=== PATIENT | female | born 1975 | race Caucasian/White ===

== ENCOUNTER 2017-09-21 09:39 | Outpatient (CLI) | payer BC ==
[2017-09-21 19:46] LABS: BASOPHILS % (AUTO) 0.8 %; EOSINOPHILS # (AUTO) 0.2 10^3/uL (0.0-0.7); EOSINOPHILS % (AUTO) 3.9 %; LYMPHOCYTES # (AUTO) 2.5 10^3/uL (1.5-3.5); LYMPHOCYTES % (AUTO) 40.6 %; MEAN CORPUSCULAR HGB CONC 33.4 g/dL (32.0-36.0); MEAN CORPUSCULAR VOLUME 86.8 fL (81.0-99.0); MONOCYTES # (AUTO) 0.4 10^3/uL (0.0-1.0); MONOCYTES % (AUTO) 6.6 %; NEUTROPHILS % (AUTO) 48.1 %; PLT - PLATELET COUNT 253 10^3/uL (130-450); RED BLOOD COUNT 4.83 10^6/uL (4.20-5.40); RED CELL DISTRIBUTION WIDTH 13.5 % (12.0-15.0); WHITE BLOOD COUNT 6.2 x10^3/uL (4.8-10.8)
[2017-09-21 20:08] LABS: ALBUMIN 4.8 g/dL (3.2-5.5); ALBUMIN/GLOBULIN RATIO 1.7 (1.0-2.2); ALKALINE PHOSPHATASE 28 IU/L (42-121); ALT ALANINE AMINOTRANSFERASE 11 IU/L (10-60); AST ASPARTATE AMINOTRANSFERASE 15 IU/L (10-42); BILIRUBIN,TOTAL 0.3 mg/dL (0.2-1.0); BUN - BLOOD UREA NITROGEN 11 mg/dL (6-20); CARBON DIOXIDE - CO2 22 mmol/L (21-32); CHLORIDE 106 mmol/L (101-111); CHOL/HDL RATIO 3.7 (<4.4); CHOLESTEROL 236 mg/dL; CREATININE 0.9 mg/dL (0.4-1.0); GFR - MDRD 69 (>89); GLUCOSE 91 mg/dL (70-100); HDL CHOLESTEROL 63 mg/dL; LDL CHOLESTEROL,CALCULATED 153 mg/dL; LDL/HDL RATIO 2.4 (<4.4); SODIUM 137 mmol/L (135-145); TOTAL PROTEIN 7.6 g/dL (6.7-8.2); VLDL CHOLESTEROL 20 mg/dL
== END 2017-09-21 09:40 | disposition home or self-care (01) ==
LOC: LAB.F 09:39
PROVIDERS: ATTEND Family Medicine
DX: Z00.00 Encounter for general adult medical examination without abnormal findings (principal); F31.9 Bipolar disorder, unspecified; F41.8 Other specified anxiety disorders
CPT/HCPCS: 36415; 80053; 80061; 80175; 84443; 85025

== ENCOUNTER 2019-03-20 09:24 | Outpatient (CLI) | payer BC, OTHER ==
--- NOTE | 2019-03-21 09:43 | Mammography Report ---
Reason: SCREENING Procedure Date: 03/20/2019 Accession Number: [id number] / [id number] Procedure: MGS - Screening Mammo Dig Bilat CPT Code: FULL RESULT: EXAM: Screening Mammo Dig Bilat DATE: 03/20/2019 9:45 AM CLINICAL HISTORY: Screening encounter. History of late childbearing. TECHNIQUE: (B) - Bilateral CC, laterally exaggerated CC, MLO views were obtained. COMPARISON: Baseline mammogram. PARENCHYMAL PATTERN: (D) - The breast(s) demonstrate(s) heterogeneously dense fibroglandular parenchyma. FINDINGS: There are coarse typically benign calcifications. There are no suspicious masses, calcifications, or areas of distortion. IMPRESSION: Benign findings. BI-RADS category 2. RECOMMENDATION: (ANNUAL) - Recommend routine annual screening mammography. BI-RADS CATEGORY: (2) - Benign Findings. STANDARD QUALIFYING STATEMENTS: 1. This examination was reviewed with the aid of Computer-Aided Detection (CAD). 2. A negative or benign imaging report should not preclude biopsy if clinically suspicious findings are present. 3. Dense breasts may obscure an underlying neoplasm. 4. This examination was reviewed without the aid of 3D breast imaging (tomosynthesis).
== END 2019-03-20 09:25 | disposition home or self-care (01) ==
LOC: DI.S 09:24
DX: Z12.31 Encounter for screening mammogram for malignant neoplasm of breast (principal)
CPT/HCPCS: 77067

== ENCOUNTER 2020-08-23 13:51 | Outpatient (CLI) | payer OTHER ==
[2020-08-23 20:18] LABS: ALBUMIN 4.3 g/dL (3.2-5.5); ALBUMIN/GLOBULIN RATIO 1.4 (1.0-2.2); ALKALINE PHOSPHATASE 26 IU/L (42-121); ALT ALANINE AMINOTRANSFERASE 19 IU/L (10-60); AST ASPARTATE AMINOTRANSFERASE 20 IU/L (10-42); BILIRUBIN,TOTAL 0.8 mg/dL (0.2-1.0); BUN - BLOOD UREA NITROGEN 12 mg/dL (6-20); CALCIUM 9.4 mg/dL (8.5-10.3); CARBON DIOXIDE - CO2 24 mmol/L (21-32); CHLORIDE 106 mmol/L (101-111); CHOL/HDL RATIO 3.5 (<4.4); CHOLESTEROL 240 mg/dL; CREATININE 0.9 mg/dL (0.4-1.0); GLUCOSE 96 mg/dL (70-100); HDL CHOLESTEROL 69 mg/dL; LDL CHOLESTEROL,CALCULATED 156 mg/dL; LDL/HDL RATIO 2.3 (<4.4); SODIUM 139 mmol/L (135-145); TOTAL PROTEIN 7.4 g/dL (6.7-8.2); VLDL CHOLESTEROL 15 mg/dL
[2020-08-23 20:24] LABS: THYROID STIMULATING HORMONE 1.38 uIU/mL (0.34-5.60)
[2020-08-23 20:26] LABS: FREE T3 4.3 pg/mL (2.5-3.9); FREE T4 (FREE THYROXINE) 0.87 ng/dL (0.58-1.64)
== END 2020-08-23 13:52 | disposition home or self-care (01) ==
LOC: LAB.S 13:51
PROVIDERS: ATTEND Nurse Practitioner Family
DX: F31.81 Bipolar II disorder (principal)
CPT/HCPCS: 36415; 80053; 80061; 82306; 82607; 83721; 84439; 84443; 84480; 84481; 85025

== ENCOUNTER 2021-01-04 10:19 | Outpatient (CLI) | payer OTHER ==
[2021-01-04 15:42] LABS: HGB - HEMOGLOBIN 13.2 g/dL (12.0-16.0); MEAN CORPUSCULAR HEMOGLOBIN 28.9 pg (27.0-31.0); MEAN CORPUSCULAR HGB CONC 32.2 g/dL (32.0-36.0); MEAN CORPUSCULAR VOLUME 89.7 fL (81.0-99.0); MEAN PLATELET VOLUME 11.3 fL (7.9-10.8); RED BLOOD COUNT 4.57 10^6/uL (4.20-5.40); RED CELL DISTRIBUTION WIDTH 13.4 % (12.0-15.0); WHITE BLOOD COUNT 4.7 x10^3/uL (4.8-10.8)
[2021-01-04 16:05] LABS: ALBUMIN 4.1 g/dL (3.2-5.5); ALBUMIN/GLOBULIN RATIO 1.3 (1.0-2.2); ALKALINE PHOSPHATASE 34 IU/L (42-121); ALT ALANINE AMINOTRANSFERASE 16 IU/L (10-60); AST ASPARTATE AMINOTRANSFERASE 14 IU/L (10-42); BILIRUBIN,TOTAL 0.6 mg/dL (0.2-1.0); BUN - BLOOD UREA NITROGEN 9 mg/dL (6-20); CALCIUM 9.1 mg/dL (8.5-10.3); CARBON DIOXIDE - CO2 25 mmol/L (21-32); CHLORIDE 104 mmol/L (101-111); CHOL/HDL RATIO 3.2 (<4.4); CHOLESTEROL 208 mg/dL; CREATININE 1.1 mg/dL (0.4-1.0); GFR - MDRD 54 (>89); GLUCOSE 94 mg/dL (70-100); HDL CHOLESTEROL 66 mg/dL; LDL CHOLESTEROL,CALCULATED 126 mg/dL; LDL/HDL RATIO 1.9 (<4.4); SODIUM 139 mmol/L (135-145); TOTAL PROTEIN 7.2 g/dL (6.7-8.2); TRIGLYCERIDES 81 mg/dL; VLDL CHOLESTEROL 16 mg/dL
[2021-01-04 16:17] LABS: THYROID STIMULATING HORMONE 1.27 uIU/mL (0.34-5.60)
[2021-01-04 16:19] LABS: FREE T3 3.65 pg/mL (2.5-3.9); FREE T4 (FREE THYROXINE) 0.89 ng/dL (0.58-1.64)
== END 2021-01-04 10:20 | disposition home or self-care (01) ==
LOC: LAB.S 10:19
PROVIDERS: ATTEND Nurse Practitioner Family
DX: F31.81 Bipolar II disorder (principal)
CPT/HCPCS: 36415; 80053; 80061; 83721; 84439; 84443; 84481; 85027

== ENCOUNTER 2021-01-24 11:40 | Outpatient (CLI) | payer OTHER ==
[2021-01-24 15:37] LABS: ALBUMIN 4.2 g/dL (3.2-5.5); PHOSPHORUS 2.9 mg/dL (2.5-4.6); POTASSIUM 4.2 mmol/L (3.5-5.0)
== END 2021-01-24 11:41 | disposition home or self-care (01) ==
LOC: LAB.S 11:40
PROVIDERS: ATTEND Nurse Practitioner Family
DX: F31.81 Bipolar II disorder (principal)
CPT/HCPCS: 36415; 80069

== ENCOUNTER 2022-01-30 08:00 | Outpatient (CLI) | payer OTHER ==
[2022-01-31 00:15] LABS: CHLAMYDIA TRACHOMATIS DNA NEGATIVE (NEGATIVE); NEISSERIA GONORRHOEAE DNA NEGATIVE (NEGATIVE)
[2022-01-31 02:13] LABS: BACTERIAL VAGINOSIS DNA NEGATIVE (NEGATIVE); CANDIDA GLABRATA DNA NEGATIVE (NEGATIVE); CANDIDA GROUP DNA NEGATIVE (NEGATIVE); CANDIDA KRUSEI DNA NEGATIVE (NEGATIVE); TRICHOMONAS VAGINALIS DNA NEGATIVE (NEGATIVE)
== END 2022-01-30 23:59 | disposition home or self-care (01) ==
LOC: LAB.S 08:00
PROVIDERS: ATTEND Physician Assistant
DX: N89.8 Other specified noninflammatory disorders of vagina (principal); R35.0 Frequency of micturition
CPT/HCPCS: 81514; 87086; 87491; 87591; 87661

== ENCOUNTER 2023-07-23 14:25 | Outpatient (CLI) | payer OTHER ==
--- NOTE | 2023-07-23 17:27 | XRAY Report ---
PROCEDURE: Cervical Spine 2 View INDICATIONS: NECK PAIN TECHNIQUE: 2 view(s) of the cervical spine were acquired. COMPARISON: None. FINDINGS: Bones: Lateral view extends from the skull base to T1. No acute fracture or traumatic subluxation. Re versal of the normal cervical lordosis centered at C4-C5. Olkr-bg-lttiwvvg multilevel degenerative ch anges with anterior osteophytosis, disc height loss and facet arthropathy, notably at C5-C6 and C6-C7 . No suspicious bony lesions. Soft tissues: No prevertebral soft tissue swelling. Visualized lung apices are clear. IMPRESSION: 1. No acute fracture or traumatic subluxation. 2. Hkvo-xf-nnsrwfua degenerative changes, notably at C5-C6 and C6-C7. 3. Reversal of the normal cervical lordosis centered at C4-C5. If symptoms persist, consider MRI for further evaluation. Reviewed by: Danni Sellers MD on 07/23/2023 5:26 PM PST Approved by: Danni Sellers MD on 07/23/2023 5:26 PM PST Station ID: [id number]
== END 2023-07-23 14:26 | disposition home or self-care (01) ==
LOC: DI.S 14:25
PROVIDERS: ATTEND Nurse Practitioner Family
DX: M47.812 Spondylosis without myelopathy or radiculopathy, cervical region (principal)

== ENCOUNTER 2023-09-28 06:28 | Day surgery (SDC) | payer OTHER ==
[~2023-09-28 06:28] MED LIST: ceFAZolin 2 GM VIAL ONE
[2023-09-28] MEDS ORDERED: LACTATED RINGERS 1,000 ML IV ONE ×2 (06:34→08:54)
[2023-09-28 06:52] LABS: HCG UR QUAL NEGATIVE
[2023-09-28] MEDS ORDERED: BUPIVACAINE 0.5%-EPI 1:200000 PF 30 ML VIAL ONE (07:03)
[2023-09-28] MEDS ORDERED: MIDAZOLAM 2 MG/2 ML VIAL ONE (07:08)
[2023-09-28] MEDS ORDERED: fentaNYL 100 MCG/2 ML VIAL ONE (07:08)
[2023-09-28] MEDS ORDERED: KETOROLAC 30 MG/ML VIAL ONE (07:13)
[2023-09-28] MEDS ORDERED: ONDANSETRON 4 MG/2 ML VIAL ONE (07:13)
[2023-09-28] MEDS ORDERED: LIDOCAINE-PF 2% 10 ML AMP SUBQ ONE (07:13)
[2023-09-28] MEDS ORDERED: DEXAMETHASONE 4 MG/ML VIAL ONE (07:13)
--- NOTE | 2023-09-28 07:25 | ANESTHESIA ---
Pre-Anesthesia VS, & Labs - Diagnosis R inguinal hernia - Procedure R inguinal hernia repair Vital Signs: Temp Pulse Resp BP Pulse Ox O2 Flow Rate 36.9 C 84 18 110/78 100 09/28/23 06:48 09/28/23 06:48 09/28/23 06:48 09/28/23 06:48 09/28/23 06:48 Height: 5 ft 1 in Weight (kg): 47 kg Body Mass Index: 19.5 BMI Classification: Normal - NPO >8 hours - Is Patient ?: No Home Medications and Allergies Home Medications: Ambulatory Orders lamoTRIgine [Lamictal] 400 mg PO DAILY 09/24/23 lamoTRIgine [Lamictal] 400 mg PO DAILY 09/24/23 Allergies/Adverse Reactions: Allergies Allergy/AdvReac Type Severity Reaction Status Date / Time No Known Drug Allergies Allergy Verified 09/28/23 06:51 Anes History & Medical History - Anesthetic History Anesthesia Complications: reports: No previous complications Family history of Anesthesia Complications: Denies Family history of Malignant Hyperthermia: Denies - Medical History Cardiovascular: reports: None Pulmonary: reports: None Gastrointestinal: reports: None Urinary: reports: None Musculoskeletal: reports: None Endocrine/Autoimmune: reports: None Skin: reports: None Smoking Status: Current every day smoker Psychosocial: reports: Psychoactive Drug, Other (Hx of substance abuse, completed treatment. currently sober) History of Cancer?: No - Surgical History Gynecologic: reports: Other Exam General: Alert, Oriented x3, Cooperative Dental: WNL Mouth Openin Fingerbreadth Neck Mobility: Normal Mallampati classification: I Thyromental Distance: 4-6 cm Respiratory: Lungs clear Cardiovascular: Regular rate Plan Anesthesia Type: General Consent for Procedure(s) Verified and Reviewed: Yes Code Status: Attempt Resuscitation ASA classification: 2-Mild systemic disease Is this case an emergency?: No
[2023-09-28] MEDS ORDERED: ePHEDrine 50 MG/ML VIAL IVP ONE (08:24)
[2023-09-28] MEDS ORDERED: BUPIVACAINE 0.5%-EPI 1:200000 PF 30 ML VIAL SUBQ ONE (08:44)
--- NOTE | 2023-09-28 08:55 | OPERATIVE REPORT ---
Operative Report - General Procedure Date: 09/28/23 Planned Procedure: RIGHT inguinal herniorrhaphy Pre-Op Diagnosis: RIGHT inguinal hernia Procedure Performed: RIGHT femoral hernia Post Op Diagnosis: RIGHT incarcerated femoral hernia - Procedure Note Primary Surgeon: Mitchell Bower MD Anesthesia Provider: Maggy Betts CRNA Anesthesia Technique: General ET tube, Local (20 mL of half percent Marcaine with epinephrine) IV Fluids (mL): 1,000 Estimated Blood Loss (mL): 2 Drain/Tube Type: Other (None.) Indications: Symptomatic RIGHT inguinal hernia Findings: RIGHT femoral hernia, incarcerated Complications: None. - Other Other Information/Narrative: After verbal and written informed consent was obtained detailing the operation, the alternatives the operation including no operation, risks of infection, bleeding requiring transfusion with its risks, nerve injury, and and after I met with the patient confirming the surgery and the site of surgery, the patient was brought to the operative suite and placed supine on the operating table. Great care was taken to avoid pressure points to prevent pressure necrosis or nerve injury. Monitoring devices were applied along with TEDs and pneumatic compression stockings (to prevent DVT). The patient received preoperative antibiotics for surgical prophylaxis. Maggy Betts CRNA sedated and anesthetized the patient for the entire procedure. The patient was prepped and draped in the usual sterile manner. With the patient draped my initials were clearly visible. A "time in" then confirmed that the patient was identified with 3 identifiers (name, date, and medical record number), the history and physical was updated and in the chart, the signed consent confirming the procedure was in the chart, the patient was in the correct position, the aforementioned prophylactic measures were in place or given, we had the correct personnel and equipment to complete the procedure and that anesthesia and the surgical team were given an opportunity to express any concerns. With the agreement of everyone in the room we proceeded with the operation. A standard inguinal incision was made and dissection was carried down to the external oblique aponeurosis using a combination of Metzenbaum scissors and Bovie electrocautery. The external oblique aponeurosis was cleared of overlying adherent tissue, and the external ring was delineated. Examination of the inguinal region failed to reveal any hernia. Instead, inferior to the inguinal crease an incarcerated hernia was noted to be coming from just medial to the right femoral vein. There were extensive adhesions to the adjoining tissues that had to be taken down with meticulous dissection. The opening was just smaller than the tip of my little finger yet the hernia sac was just slightly smaller than a ping pong ball. Extensive dissection had to be taken to free up all these adhesions and the opening itself was dilated up so that it would admit the tip of my little finger. Once this was done I was able to reduce the hernia into the abdomen. A piece of Bard polypropylene mesh (Lot # [id number], reference #[id number], use by date 2028-01-09) was rolled into a cigar shape and 2-0 PDS was sutured through this to keep this in the shape. This was then secured in the opening with interrupted 2-0 PDS thus closing the femoral defect. Ford's fascia was loosely approximated using a simple 3-0 Vicryl suture. The entire area both deep and superficial was injected using half percent Marcaine. A total of 20 mL of half percent Marcaine with epinephrine was used. The skin incision was approximated with 4-0 Monocryl in a subcuticular fashion. The skin was cleaned of its prep and Dermabond was applied. At this point a timeout was performed that confirmed that all counts were correct x2, the procedure that was performed, the blood loss, the IV fluids administered, the patient's condition, and any concerns of the operating team had. Having tolerated the procedure well, the patient was taken recovery room in good and stable condition. The plan is for outpatient discharge when the patient is adequately recovered. CPT 70055 This document was created in part using voice recognition technology. Because of the inherent limitations of the system, occasional same sounding word substitutions and grammatical errors do occur and persist despite proofreading. Please read this document for content.
[2023-09-28] MEDS ORDERED: HYDROcod/ACETAM 5/325 MG TABLET PO PRN (09:08)
[2023-09-28] MEDS ORDERED: ONDANSETRON 4 MG/2 ML VIAL IVP PRN ×2 (09:08→09:09)
[2023-09-28] MEDS ORDERED: HYDROmorphone 0.5 MG/0.5 ML SYRINGE IVP PRN ×2 (09:08→09:09)
[2023-09-28] MEDS ORDERED: MORPHINE 2 MG/ML CARPUJECT IVP PRN (09:09)
[2023-09-28] MEDS ORDERED: fentaNYL 100 MCG/2 ML VIAL IVP PRN (09:09)
[2023-09-28] MEDS ORDERED: ATROPINE ABBOJECT 1 MG/10 ML SYRINGE IVP PRN (09:09)
[2023-09-28] MEDS ORDERED: NALOXONE 0.4 MG/ML VIAL IVP PRN (09:09)
[2023-09-28] MEDS ORDERED: ePHEDrine 50 MG/ML VIAL IVP PRN (09:09)
[2023-09-28] MEDS ORDERED: HYDROcod/ACETAM 5/325 MG TABLET ONE (09:33)
[2023-09-28 09:48] VITALS: BP 112/70
[2023-09-28] MEDS ORDERED: LACTATED RINGERS 1,000 ML IV SCH (10:00)
[2023-09-28 10:17] VITALS: O2SAT 99
--- NOTE | 2023-09-28 17:52 | ANESTHESIA POST OP EVALUATION ---
Anesthesia Post Eval - Post Anesthesia Eval Vitals: Last Vital Signs Temp 36.4 C L 09/28/23 09:20 Pulse 78 09/28/23 10:07 Resp 18 09/28/23 10:07 BP 112/70 09/28/23 09:39 Pulse Ox 99 09/28/23 10:07 O2 Flow Rate CV Function Including HR & BP: Stable Pain Control: Satisfactory Nausea & Vomiting: Negative Mental Status: Baseline Respiratory Status: Airway Patent Hydration Status: Satisfactory Anesthesia Complications: None
== END 2023-09-28 06:29 | disposition home or self-care (01) ==
LOC: SDS 06:28
PROVIDERS: ATTEND Surgery
DX: K41.30 Unilateral femoral hernia, with obstruction, without gangrene, not specified as recurrent (principal); Z32.02 Encounter for pregnancy test, result negative; Z87.891 Personal history of nicotine dependence
CPT/HCPCS: 49553; 81025; A9270; C1781; J7120